=== PATIENT | male | born 1995 | race Two or more races ===

== ENCOUNTER 2022-02-26 12:49 | Emergency (ER) | payer OTHER ==
[~2022-02-26] VITALS: Ht 170.2 cm; Wt 66.7 kg
== END 2022-02-26 23:07 | disposition home or self-care (01) ==
LOC: ER 12:49
DX: R19.7 Diarrhea, unspecified (principal); R51.9 Headache, unspecified; Z20.822 Contact with and (suspected) exposure to COVID-19